=== PATIENT | female | born 1985 | race Two or more races ===

== ENCOUNTER 2025-07-04 10:47 | Emergency (ER) | payer MEDICAID ==
[~2025-07-04] VITALS: Ht 152.4 cm; Wt 92.0 kg
[2025-07-04 11:02] VITALS: O2SAT 86
[2025-07-04 12:06] LABS: BASOPHILS % 0.9 % (0.0-2.0); EOSINOPHILS % 4.0 % (0.0-5.0); HEMATOCRIT. 36.4 % (36.0-48.0); HEMOGLOBIN. 11.2 g/dL (12.0-16.0); LYMPHOCYTES % 32.4 % (20.0-50.0); MEAN PLATELET VOLUME 6.5 fl (7.4-10.4); MONOCYTES % 10.2 % (2.0-8.0); NEUTROPHILS % 52.5 % (40.0-76.0); PLATELET 384 x1000/uL (130-400); RED BLOOD CELL COUNT 4.72 mill/uL (4.2-5.4); RED CELL DISTRIBUTION WIDTH 15.0 % (11.6-14.6)
[2025-07-04 12:18] LABS: HCG SCREEN NEGATIVE
[2025-07-04 12:21] LABS: CREATININE 0.7 mg/dL (0.6-1.0)
[2025-07-04 12:22] LABS: ETHANOL BLOOD < 10 mg/dL (<10); TROPONIN I HIGH SENSITIVITY < 4 ng/L (3.0-34); UREA NITROGEN BLOOD 7 mg/dL (9-23)
[2025-07-04 12:23] LABS: ASPARTATE AMINOTRANSFERASE 23 IU/L (<34)
[2025-07-04 12:24] LABS: BILIRUBIN DIRECT 0.1 mg/dL (<=3.0); BILIRUBIN TOTAL 0.4 mg/dL (0.1-1.0); PROTEIN TOTAL 7.6 g/dL (6.0-8.3)
[2025-07-04 12:57] VITALS: BP 128/77; PULSE 70; RESP 16; TEMP 36.8; O2SAT 100
== END 2025-07-04 13:01 | disposition home or self-care (01) ==
LOC: ER 10:47
DX: R07.9 Chest pain, unspecified (principal)
CPT/HCPCS: 36415; 71045; 80048; 80076; 80320; 84484; 84703; 85025; 85379; 93005; 99285; G0480